=== PATIENT | female | born 1995 | race African-American/Black ===

== ENCOUNTER 2021-09-21 00:13 | Emergency (ER) | payer SELFPAY ==
[~2021-09-21] VITALS: Ht 162.6 cm; Wt 93.0 kg
[2021-09-21] MEDS ORDERED: KETOROLAC 30MG/ML VIAL IV STA (01:43)
[2021-09-21] MEDS ORDERED: SODIUM CHLORIDE 0.9% 1,000 ML IV ONE (01:45)
[2021-09-21] MEDS ORDERED: METOCLOPRAMIDE HCL 10MG/2ML VIAL IV ONE (01:45)
[2021-09-21 02:26] VITALS: BP 130/82
== END 2021-09-21 03:40 | disposition home or self-care (01) ==
LOC: ER 00:13
DX: R51.9 Headache, unspecified (principal)
CPT/HCPCS: 96361; 96374; 96375; 99284; J1885; J2765; J7030

== ENCOUNTER 2021-09-22 16:44 | Emergency (ER) | payer MEDICAID ==
[~2021-09-22] VITALS: Ht 162.6 cm; Wt 94.0 kg
[2021-09-22] MEDS ORDERED: MAGNESIUM/ALUMINUM HYDROXIDE/SIMETHICONE 30ML UDC PO ONE (20:15)
[2021-09-22 22:14] VITALS: BP 124/76
== END 2021-09-22 22:10 | disposition home or self-care (01) ==
LOC: ER 16:44
DX: R10.13 Epigastric pain (principal); R51.9 Headache, unspecified; I10 Essential (primary) hypertension; Z98.890 Other specified postprocedural states
CPT/HCPCS: 74018; 81025; 99284

== ENCOUNTER 2021-10-14 14:25 | Emergency (ER) | payer MEDICAID ==
[~2021-10-14] VITALS: Ht 162.6 cm; Wt 90.0 kg
[2021-10-14] MEDS ORDERED: ACETAMINOPHEN 325MG TABLET PO ONE (15:00)
[2021-10-14] MEDS ORDERED: SODIUM CHLORIDE 0.9% 1,000 ML IV ONE (15:00)
[2021-10-14 15:24] LABS: BASOPHILS % 0.3 % (0.0-2.0); EOSINOPHILS % 1.2 % (0.0-5.0); HEMATOCRIT. 37.9 % (36.0-48.0); HEMOGLOBIN. 12.3 g/dL (12.0-16.0); LYMPHOCYTES % 16.8 % (20.0-50.0); MEAN CORPUSCULAR HEMOGLOBIN 27.4 pg (28.0-32.0); MEAN CORPUSCULAR VOLUME 84.2 fL (81.0-99.0); MEAN PLATELET VOLUME 9.7 fl (7.4-10.4); MONOCYTES % 9.6 % (2.0-8.0); NEUTROPHILS % 72.1 % (40.0-76.0); PLATELET 206 x1000/uL (130-400); RED CELL DISTRIBUTION WIDTH 13.7 % (11.6-14.6)
[2021-10-14 15:28] LABS: CHLORIDE 108 mEq/L (98-107)
[2021-10-14 16:24] LABS: CLARITY URINE CLEAR (CLEAR); COLOR URINE YELLOW (YELLOW); KETONES URINE 1+ (NEGATIVE); LEUKOCYTE ESTERASE URINE NEGATIVE (NEGATIVE); NITRITE URINE NEGATIVE (NEGATIVE); OCCULT BLOOD URINE 2+ (NEGATIVE); PH URINE 5.5 (4.5-8.0); PROTEIN URINE NEGATIVE (NEGATIVE); SPECIFIC GRAVITY URINE 1.026 (1.005-1.030)
[2021-10-14] MEDS ORDERED: KETOROLAC 30MG/ML VIAL IV NR (17:30)
[2021-10-14 19:07] VITALS: BP 130/53
== END 2021-10-14 19:09 | disposition home or self-care (01) ==
LOC: ER 14:25
DX: R51.9 Headache, unspecified (principal); I10 Essential (primary) hypertension
CPT/HCPCS: 36415; 70450; 80053; 81003; 85025; 96361; 96374; 99284; J1885; J7030

== ENCOUNTER 2021-10-17 07:39 | Emergency (ER) | payer MEDICAID ==
[~2021-10-17] VITALS: Ht 162.6 cm; Wt 89.0 kg
[2021-10-17] MEDS ORDERED: KETOROLAC 30MG/ML VIAL IM ONE (08:45)
[2021-10-17] MEDS ORDERED: ACETAMINOPHEN 325MG TABLET PO ONE (08:45)
[2021-10-17] MEDS ORDERED: AMLODIPINE 10MG TABLET PO ONE (08:45)
[2021-10-17] MEDS ORDERED: TETRACAINE 0.5% OPHTH DROPS 4ML BOTHEYE ONE (09:45)
[2021-10-17] MEDS ORDERED: FLUORESCEIN SODIUM 1MG/STRIP BOTHEYE ONE (09:45)
[2021-10-17 11:06] VITALS: BP 135/85
[2021-10-18] MEDS ORDERED: CIPR5DRO EACHEYE (16:38)
== END 2021-10-17 11:09 | disposition home or self-care (01) ==
LOC: ER 07:39
DX: R51.9 Headache, unspecified (principal); I10 Essential (primary) hypertension
CPT/HCPCS: 81025; 82962; 96372; 99284; J1885

== ENCOUNTER 2021-10-18 14:40 | Emergency (ER) | payer MEDICAID ==
[~2021-10-18] VITALS: Ht 162.6 cm; Wt 89.0 kg
[2021-10-18 14:59] VITALS: BP 149/96
[2021-10-18] MEDS ORDERED: CIPR5DRO EACHEYE (16:38)
== END 2021-10-18 16:43 | disposition home or self-care (01) ==
LOC: ER 14:40
DX: H10.33 Unspecified acute conjunctivitis, bilateral (principal)
CPT/HCPCS: 99283

== ENCOUNTER 2021-11-11 15:57 | Emergency (ER) | payer MEDICAID ==
[~2021-11-11] VITALS: Ht 162.6 cm; Wt 88.0 kg
[~2021-11-11 15:57] MED LIST: CIPR5DRO EACHEYE
[2021-11-11 16:19] VITALS: BP 131/85
[2021-11-11] MEDS ORDERED: AMLO10TA80 PO (16:23)
[2021-11-11] MEDS ORDERED: IBUP-2741 PO (16:23)
[2021-11-11] MEDS ORDERED: ACETAMINOPHEN 325MG TABLET PO ONE (17:15)
[2021-11-11] MEDS ORDERED: IBUP-2029 MT (17:21)
== END 2021-11-11 19:32 | disposition left against medical advice (07) ==
LOC: ER 15:57
DX: R51.9 Headache, unspecified (principal)
CPT/HCPCS: 99282

== ENCOUNTER 2021-11-14 17:22 | Emergency (ER) | payer MEDICAID ==
[~2021-11-14] VITALS: Ht 165.1 cm; Wt 89.0 kg
[~2021-11-14 17:22] MED LIST changes: +AMLO10TA80 PO; +IBUP-2029 MT; +IBUP-2741 PO
[2021-11-14 17:29] VITALS: BP 115/51
[2021-11-14] MEDS ORDERED: IBUPROFEN 400MG TABLET PO ONE (19:30)
[2021-11-14 20:26] LABS: CLARITY URINE CLEAR (CLEAR); COLOR URINE DK YELLOW (YELLOW); KETONES URINE 3+ (NEGATIVE); LEUKOCYTE ESTERASE URINE NEGATIVE (NEGATIVE); NITRITE URINE NEGATIVE (NEGATIVE); OCCULT BLOOD URINE NEGATIVE (NEGATIVE); PROTEIN URINE TRACE (NEGATIVE); SPECIFIC GRAVITY URINE 1.029 (1.005-1.030)
[2021-11-14] MEDS ORDERED: ACETAMINOPHEN 325MG TABLET PO ONE (22:00)
[2021-11-16] MEDS ORDERED: ACET-2708 MT (05:59)
== END 2021-11-15 01:00 | disposition home or self-care (01) ==
LOC: ER 17:22
DX: R10.9 Unspecified abdominal pain (principal); N63.0 Unspecified lump in unspecified breast; I10 Essential (primary) hypertension; Z79.899 Other long term (current) drug therapy
CPT/HCPCS: 71046; 76856; 81003; 81025; 93005; 99285

== ENCOUNTER 2021-11-16 01:51 | Emergency (ER) | payer MEDICAID ==
[~2021-11-16] VITALS: Ht 162.6 cm; Wt 87.0 kg
[2021-11-16] MEDS ORDERED: KETOROLAC 30MG/ML VIAL IV STA (02:18)
[2021-11-16 03:15] LABS: CLARITY URINE CLEAR (CLEAR); COLOR URINE YELLOW (YELLOW); KETONES URINE 1+ (NEGATIVE); LEUKOCYTE ESTERASE URINE NEGATIVE (NEGATIVE); NITRITE URINE NEGATIVE (NEGATIVE); OCCULT BLOOD URINE NEGATIVE (NEGATIVE); PROTEIN URINE NEGATIVE (NEGATIVE); SPECIFIC GRAVITY URINE 1.025 (1.005-1.030)
[2021-11-16 03:20] LABS: CHLORIDE 109 mEq/L (98-107)
[2021-11-16 03:24] LABS: BASOPHILS % 0.5 % (0.0-2.0); EOSINOPHILS % 1.7 % (0.0-5.0); HEMATOCRIT. 34.6 % (36.0-48.0); HEMOGLOBIN. 11.8 g/dL (12.0-16.0); LYMPHOCYTES % 15.7 % (20.0-50.0); MEAN CORPUSCULAR HEMOGLOBIN 28.2 pg (28.0-32.0); MEAN CORPUSCULAR VOLUME 82.9 fL (81.0-99.0); MEAN PLATELET VOLUME 9.5 fl (7.4-10.4); MONOCYTES % 11.6 % (2.0-8.0); NEUTROPHILS % 70.5 % (40.0-76.0); PLATELET 258 x1000/uL (130-400); RED BLOOD CELL COUNT 4.17 mill/uL (4.2-5.4); RED CELL DISTRIBUTION WIDTH 13.8 % (11.6-14.6)
[2021-11-16] MEDS ORDERED: ACET-2708 MT (05:59)
[2021-11-16 06:46] VITALS: BP 120/86
== END 2021-11-16 06:46 | disposition home or self-care (01) ==
LOC: ER 01:51
DX: R10.2 Pelvic and perineal pain (principal); I10 Essential (primary) hypertension
CPT/HCPCS: 36415; 76856; 80053; 81003; 81025; 85025; 96374; 99284; J1885

== ENCOUNTER 2021-12-12 23:52 | Emergency (ER) | payer MEDICAID ==
[~2021-12-12] VITALS: Ht 162.6 cm; Wt 85.0 kg
[~2021-12-12 23:52] MED LIST changes: +ACET-2708 MT
[2021-12-13] MEDS ORDERED: BACL-141 MT (02:10)
[2021-12-13] MEDS ORDERED: IBUP-2029 MT (02:10)
[2021-12-13 02:20] VITALS: BP 138/86
== END 2021-12-13 02:28 | disposition home or self-care (01) ==
LOC: ER 23:52
DX: R07.89 Other chest pain (principal); I10 Essential (primary) hypertension; Z98.890 Other specified postprocedural states; Z79.899 Other long term (current) drug therapy
CPT/HCPCS: 71046; 81025; 93005; 99283

== ENCOUNTER 2022-11-29 09:53 | Emergency (ER) | payer OTHER, MEDICAID ==
[~2022-11-29] VITALS: Ht 160 cm; Wt 89.0 kg
[~2022-11-29 09:53] MED LIST changes: +BACL-141 MT
[2022-11-29 09:56] VITALS: BP 149/81
[2022-11-29] MEDS ORDERED: IBUPROFEN 400MG TABLET PO ONE (11:15)
[2022-11-29 11:41] LABS: CLARITY URINE CLEAR (CLEAR); COLOR URINE YELLOW (YELLOW); KETONES URINE TRACE (NEGATIVE); LEUKOCYTE ESTERASE URINE NEGATIVE (NEGATIVE); NITRITE URINE NEGATIVE (NEGATIVE); OCCULT BLOOD URINE NEGATIVE (NEGATIVE); PH URINE 5.5 (4.5-8.0); PROTEIN URINE NEGATIVE (NEGATIVE); SPECIFIC GRAVITY URINE 1.032 (1.005-1.030)
[2022-11-29 11:48] LABS: BASOPHILS % 0.2 % (0.0-2.0); CHLORIDE 108 mEq/L (98-107); HEMATOCRIT. 40.5 % (36.0-48.0); HEMOGLOBIN. 13.4 g/dL (12.0-16.0); LYMPHOCYTES % 13.9 % (20.0-50.0); MEAN CORPUSCULAR HEMOGLOBIN 28.8 pg (28.0-32.0); MEAN PLATELET VOLUME 9.7 fl (7.4-10.4); MONOCYTES % 9.8 % (2.0-8.0); NEUTROPHILS % 73.1 % (40.0-76.0); PLATELET 197 x1000/uL (130-400); RED BLOOD CELL COUNT 4.65 mill/uL (4.2-5.4); RED CELL DISTRIBUTION WIDTH 13.4 % (11.6-14.6)
[2022-11-29] MEDS ORDERED: [UNRECOGNIZED DRUG - OTHER] MT (12:34)
[2022-11-29] MEDS ORDERED: IBUP-2028 MT (12:34)
== END 2022-11-29 12:47 | disposition home or self-care (01) ==
LOC: ER 09:53
DX: K59.00 Constipation, unspecified (principal); R10.33 Periumbilical pain; I10 Essential (primary) hypertension; Z98.890 Other specified postprocedural states
CPT/HCPCS: 36415; 80053; 81003; 81025; 85025; 99283

== ENCOUNTER 2023-10-12 19:02 | Emergency (ER) | payer OTHER, MEDICAID ==
[~2023-10-12] VITALS: Ht 160 cm; Wt 87.0 kg
[~2023-10-12 19:02] MED LIST changes: +IBUP-2028 MT; +[UNRECOGNIZED DRUG - OTHER] MT
[2023-10-12 19:23] VITALS: BP 141/81; PULSE 84; RESP 18; TEMP 98.1; O2SAT 98
[2023-10-13] MEDS ORDERED: ACET325T52 MT (00:10)
== END 2023-10-13 00:28 | disposition home or self-care (01) ==
LOC: ER 19:02
DX: M79.662 Pain in left lower leg (principal); I10 Essential (primary) hypertension; Z79.899 Other long term (current) drug therapy
CPT/HCPCS: 93971; 99284

== ENCOUNTER 2023-10-20 10:32 | Emergency (ER) | payer MEDICAID, OTHER ==
[~2023-10-20] VITALS: Ht 162.6 cm; Wt 86.0 kg
[~2023-10-20 10:32] MED LIST changes: +ACET325T52 MT
[2023-10-20 10:45] VITALS: PULSE 87; RESP 16; TEMP 98.3; O2SAT 100
== END 2023-10-20 12:48 | disposition home or self-care (01) ==
LOC: ER 10:32
DX: M79.671 Pain in right foot (principal); I10 Essential (primary) hypertension; Z98.890 Other specified postprocedural states
CPT/HCPCS: 73630; 99283

== ENCOUNTER 2023-10-22 16:26 | Emergency (ER) | payer OTHER, MEDICAID ==
[~2023-10-22] VITALS: Ht 162.6 cm; Wt 86.2 kg
[2023-10-22 16:49] VITALS: O2SAT 98
[2023-10-22] MEDS ORDERED: ACET325T52 MT (19:40)
[2023-10-22] MEDS ORDERED: IBUP-1525 MT (19:40)
[2023-10-22 20:04] VITALS: BP 156/74; PULSE 72; RESP 16; TEMP 98.4
== END 2023-10-22 20:04 | disposition home or self-care (01) ==
LOC: ER 16:26
DX: M79.671 Pain in right foot (principal); I10 Essential (primary) hypertension
CPT/HCPCS: 73630; 99283

== ENCOUNTER 2023-10-27 13:42 | Emergency (ER) | payer OTHER, MEDICAID ==
[~2023-10-27] VITALS: Ht 162.6 cm; Wt 86.2 kg
[~2023-10-27 13:42] MED LIST changes: +IBUP-1525 MT
[2023-10-27 14:02] VITALS: O2SAT 99
[2023-10-27 16:39] VITALS: BP 125/72; PULSE 86; RESP 16; TEMP 98.2
== END 2023-10-27 16:40 | disposition home or self-care (01) ==
LOC: ER 13:42
DX: M25.471 Effusion, right ankle (principal); I10 Essential (primary) hypertension; Z98.890 Other specified postprocedural states
CPT/HCPCS: 73610; 99283

== ENCOUNTER 2024-12-14 05:14 | Emergency (ER) | payer MEDICAID, OTHER ==
[~2024-12-14] VITALS: Ht 162.6 cm; Wt 99.4 kg
[~2024-12-14 05:14] MED LIST changes: +ACET-3800 MT; -ACET325T52 MT
[2024-12-14 05:27] VITALS: O2SAT 99
[2024-12-14] MEDS: DIPHENHYDRAMINE 25MG CAPSULE PO ONE (06:41)
[2024-12-14] MEDS: PROCHLORPERAZINE MALEATE 10MG TABLET PO ONE (06:41)
[2024-12-14] MEDS: KETOROLAC 30MG/ML VIAL IV ONE (06:52)
[2024-12-14] MEDS ORDERED: IBUP-2029 MT (07:51)
[2024-12-14 08:01] VITALS: BP 121/72; PULSE 89; RESP 17; TEMP 36.7; O2SAT 99
== END 2024-12-14 08:05 | disposition home or self-care (01) ==
LOC: ER 05:14
DX: R51.9 Headache, unspecified (principal); I10 Essential (primary) hypertension; Z79.899 Other long term (current) drug therapy
CPT/HCPCS: 99285; 96374; 70450; 81025; J1885; Q0163; Q0164

== ENCOUNTER 2025-10-06 23:49 | Emergency (ER) | payer MEDICAID ==
[~2025-10-06] VITALS: Ht 160 cm; Wt 91.0 kg
[~2025-10-06 23:49] MED LIST changes: +IBUP-1455 MT; -IBUP-2029 MT
[2025-10-07 00:04] VITALS: O2SAT 98
[2025-10-07] MEDS ORDERED: DEXAMETHASONE 1 MG/ML ORAL SYR PO ONE (03:15)
[2025-10-07] MEDS: DEXAMETHASONE 10 MG/ML VIAL PO NR (03:41)
[2025-10-07] MEDS: DIPHENHYDRAMINE 25MG CAPSULE PO ONE (03:41)
[2025-10-07] MEDS: KETOROLAC 30MG/ML VIAL IM ONE (03:41)
[2025-10-07] MEDS: SUMATRIPTAN SUCCINATE 6MG/0.5ML VIAL SUBCUT ONE (03:41)
[2025-10-07] MEDS: PROCHLORPERAZINE MALEATE 10MG TABLET PO ONE (03:54)
[2025-10-07] MEDS ORDERED: KETO10TA2 MT (05:04)
[2025-10-07] MEDS ORDERED: SUMA11AE2 BOTHNSTRLS (05:04)
[2025-10-07] MEDS ORDERED: SUMA100T16 MT (05:04)
[2025-10-07 05:16] VITALS: BP 170/100; PULSE 76; RESP 14; TEMP 37.1; O2SAT 97
== END 2025-10-07 05:18 | disposition home or self-care (01) ==
LOC: ER 23:49
DX: G43.909 Migraine, unspecified, not intractable, without status migrainosus (principal); I10 Essential (primary) hypertension
CPT/HCPCS: 99284; 81025; 96372; J1885; Q0163; Q0164; J1100; J3030; J8540